=== PATIENT | female | born 1980 ===

== ENCOUNTER 2022-03-28 11:30 | Outpatient (REF) | payer BC, SELFPAY ==
--- NOTE | 2022-03-28 10:00 | PAPFT_PTH ---
PATIENT: Melisa Puente LOC: [facility]#:[id number] AGE/SX: 41/F ROOM: RE03/28/[address]: Sandra Elizabeth : 1980 BED: DIS: 03/28/2022 SPEC #: [id number] RECD: 03/28/22 17:30 STATUS: ADRY REChucho #: [id number] CHIQUITA: 03/28/22 10:[address]: Sandra Elizabeth DEPT: [facility] Cytology RECD BY: Yolanda Braden Tissues: 1 - CX/ENDOCX FOR PAP SMEARS Procedures: PAP THIN PREP/[facility] Screening HPV DNA PROBE Comments: [id number] (CHLAMYDIA/GC) (HPV 16 & 18/45)
[2022-03-28 14:40] LABS: HCT 42.1 % (36.0-46.0); HGB 13.8 g/dL (11.2-15.7); MCH 32.4 pg (27.0-33.0); MCHC 32.8 % (32.0-36.0); MCV 99 fL (80-95); MPV 11.3 fL (8.0-11.0); Platelet Count 225 10^3/uL (130-400); RBC 4.26 10^6/uL (3.93-5.22); WBC 5.61 10^3/uL (4.4-10.8)
[2022-03-28 15:07] LABS: ALT 23 U/L (14-59); AST 23 U/L (15-37); Albumin 3.8 g/dL (3.4-5.0); Alkaline Phosphatase 89 U/L (46-116); Anion Gap 8.4 mmol/L (3-11); BUN 10 mg/dL (7-18); Bilirubin, Total 0.3 mg/dL (0.2-1.0); CO2 26.6 mmol/L (21.0-32.0); CREATININE 0.9 mg/dL (0.55-1.02); Calcium 9.1 mg/dL (8.5-10.1); Calculated LDL 119 mg/dL (<100); Chloride 105 mmol/L (98-107); Cholesterol 184 mg/dL (<200); Estimated GFR 82.37 (mL/min/1.73m2); Glucose 86 mg/dL (74-106); HDL Cholesterol 47 mg/dL (40-60); Potassium 4.5 mmol/L (3.5-5.1); Sodium 140 mmol/L (136-145); TSH 1.78 uIU/mL (0.36-3.74); Total Protein 7.3 g/dL (6.4-8.2); Triglyceride 93 mg/dL (<150)
[2022-03-31 15:18] LABS: Chlamydia Result Negative (Negative); GC Result Negative (Negative)
== END 2022-03-28 11:31 | disposition home or self-care (01) ==
LOC: NCHCN 11:30
PROVIDERS: Visit Provider Registered Nurse
DX: R87.810 Cervical high risk human papillomavirus (HPV) DNA test positive (principal); Z12.4 Encounter for screening for malignant neoplasm of cervix; Z11.51 Encounter for screening for human papillomavirus (HPV); Z23 Encounter for immunization; Z00.00 Encounter for general adult medical examination without abnormal findings; Z11.3 Encounter for screening for infections with a predominantly sexual mode of transmission
CPT/HCPCS: 80053; 80061; 85027; 87491; 87591; 88142; 84443; 87624

== ENCOUNTER 2022-04-30 18:53 | Outpatient (REF) | payer BC, SELFPAY | END 2022-04-30 18:54 | disposition home or self-care (01) | LOC: NCHCN 18:53 | PROVIDERS: Visit Provider Registered Nurse | DX: L29.8 Other pruritus (principal) | CPT/HCPCS: 87480; 87510; 87660 ==

== ENCOUNTER 2023-09-11 19:48 | Outpatient (REF) | payer OTHER, SELFPAY ==
[2023-09-11 21:49] LABS: TSH (W/Ref FT4) 1.66 uIU/mL (0.36-3.74)
[2023-10-07 16:22] LABS: Rabies Antibody Endpoint 0.7 IU/mL
== END 2023-09-11 19:49 | disposition home or self-care (01) ==
LOC: NCHCN 19:48
PROVIDERS: Referring Provider Family Medicine; Visit Provider Family Medicine
DX: R63.5 Abnormal weight gain (principal); Z13.89 Encounter for screening for other disorder; Z20.3 Contact with and (suspected) exposure to rabies; Z01.84 Encounter for antibody response examination
CPT/HCPCS: 86317; 84443